=== PATIENT | female | born 1990 | race Caucasian/White ===

== ENCOUNTER 2023-04-12 10:01 | Outpatient (REF) | payer MEDICAID, SELFPAY | END 2023-04-12 10:02 | disposition home or self-care (01) | LOC: NFLDREF 10:01 | PROVIDERS: PCP Family Medicine; Referring Provider Family Medicine; Visit Provider Family Medicine | DX: Z13.220 Encounter for screening for lipoid disorders (principal); Z13.1 Encounter for screening for diabetes mellitus | CPT/HCPCS: 80061; 82947 ==

== ENCOUNTER 2023-04-17 07:58 | Outpatient (CLI) | payer MEDICAID, SELFPAY | END 2023-04-17 07:59 | disposition home or self-care (01) | PROVIDERS: PCP Family Medicine; Visit Provider Family Medicine | DX: N92.6 Irregular menstruation, unspecified (principal); Z13.1 Encounter for screening for diabetes mellitus | CPT/HCPCS: 82947; 84443 ==

== ENCOUNTER 2023-05-17 14:41 | Outpatient (CLI) | payer MEDICAID, SELFPAY ==
--- NOTE | 2023-05-17 15:00 | US_ITS ---
Patient: HONG YAN Facility:?[facility] Patient ID:?[id number] Site Patient ID:?[id number]. Site :?1990 Study:?US-Pelvis TRANSABDOMINAL AND TRANSVAGINAL-05/17/2023 4:45:29 PM Ordering Physician:YANIV RODRIGUEZ Final Report: INDICATION: Irregular menstruation. COMPARISON: None. TECHNIQUE: 2D palomino scale and color Doppler images were acquired of the pelvis using a transabdominal and transvaginal approach. FINDINGS: Sonographic images demonstrate a normal size and smooth outer contour of the uterus. The uterus is anteverted in position. The uterus measures 8.4 cm in length by 3.4 cm in AP diameter by 5.0 cm in transverse dimension. The myometrium has uniform echotexture. The endometrial lining measures 6 mm in composite thickness. The right ovary measures 3.0 x 1.2 x 1.7 cm and the left ovary measures 3.7 x 2.8 x 2.8 cm. The ovaries demonstrate normal arterial and venous blood flow on color Doppler analysis. There is a 2.5 cm dominant follicle in the left ovary. No free fluid in the pelvic cul-de-sac. IMPRESSION: Unremarkable exam. Dictated by Shannon Mart MD @ 05/20/2023 12:16:15 AM Signed by:?Shannon Mart MD @05/20/2023 12:16:15 AM (Electronic Signature)
== END 2023-05-17 14:42 | disposition home or self-care (01) ==
LOC: US 14:41
PROVIDERS: PCP Family Medicine; Visit Provider Family Medicine
DX: N92.6 Irregular menstruation, unspecified (principal); N83.02 Follicular cyst of left ovary
CPT/HCPCS: 76830; 76856; 93976

== ENCOUNTER 2023-05-21 15:46 | Outpatient (CLI) | payer MEDICAID, SELFPAY | END 2023-05-21 15:47 | disposition home or self-care (01) | LOC: NFLDREF 05-22 07:56 | PROVIDERS: PCP Family Medicine; Referring Provider Family Medicine; Visit Provider Obstetrics & Gynecology | DX: R35.0 Frequency of micturition (principal) | CPT/HCPCS: 87086 ==

== ENCOUNTER 2023-05-31 12:58 | Outpatient (CLI) | payer MEDICAID, SELFPAY ==
--- NOTE | 2023-05-31 13:00 | MR_ITS ---
Patient: HONG YAN Facility:?[facility] Patient ID:?[id number] Site Patient ID:?[id number]. Site :?1990 Study:?MRI-Breast W/ and W/O Cont 20 CC DOATERM-05/31/2023 5:13:46 PM Ordering Physician:?JEFERSON GUY Final Report: BILATERAL BREAST MRI WITHOUT AND WITH GADOLINIUM CLINICAL HISTORY: Personal history of BILATERAL mastectomies for prophylaxis with implant reconstruction. Family history BRCA 1 gene. INDICATION FOR BREAST MRI: Screening breast MRI. COMPARISON STUDIES: No comparison studies. There is an ultrasound. CONTRAST: 20 mL Dotarem. TECHNIQUE: The patient was positioned prone using a breast coil. Multiple imaging sequences were obtained using 1-1.5 mm thick slices with no gap. The image sequences include T2-weighted STIR in the axial plane, T1-weighted nonfat-saturated gradient echo in the axial plane, pre- and post-contrast T1-weighted FLASH 3D with fat suppression in the axial plane, and T1-weighted FLASH high resolution 3D with fat suppression in the sagittal plane. Image post-processing was performed on a [employer] workstation. Complex 3D rendering including maximum intensity projections (MIPS) and volumetric renderings were obtained to optimize visualization of the extent of pathology and relationship to the nipple, skin, and chest wall. This aids in determining feasibility of breast conservation surgery. Subtraction, multiplanar reconstruction, mean curve determination, and angiogenesis mapping were also performed. The study was technically adequate. FINDINGS: Changes of BILATERAL nipple sparing mastectomy. BILATERAL silicone implant reconstruction. BILATERAL implants are intact. There is glandular tissue identified in subareolar LEFT breast and BILATERAL fatty tissue surrounding the implants. No suspicious mass or non-mass enhancement. IMPRESSIONS AND RECOMMENDATIONS: Negative for signs of malignancy. Consider follow-up with breast MRI in 1 year for screening. BI-RADS Category 2: Benign Dictated by Lupis Cooper MD @ 06/27/2023 10:14:22 AM jj/Dictated by: Lupis Cooper MD @ 06/27/2023 10:20:00 AM Signed by:?Lupis Cooper MD @06/28/2023 8:18:04 AM (Electronic Signature)
== END 2023-05-31 12:59 | disposition home or self-care (01) ==
LOC: MRI 12:58
PROVIDERS: PCP Family Medicine; Visit Provider Surgery
DX: Z15.01 Genetic susceptibility to malignant neoplasm of breast (principal); Z15.09 Genetic susceptibility to other malignant neoplasm
CPT/HCPCS: 77049; C8908; C8937; A9575

== ENCOUNTER 2023-06-12 09:18 | Outpatient (CLI) | payer MEDICAID, SELFPAY ==
--- NOTE | 2023-06-12 08:45 | US_ITS ---
Patient: HONG YAN Facility:?[facility] Patient ID:?[id number] Site Patient ID:?[id number]. Site :?1990 Study:?US-Extremity Left SOFT TISSUE-06/12/2023 9:46:09 AM Ordering Physician:?JAMEY HOLMAN Final Report: Indication: UNABLE TO FEEL NEXPLANON IN OFFICE FOR REMOVAL Technique: Grayscale sonogram of the left upper arm soft tissues performed. IMPRESSION: NEXPLANON implant is present within the subcutaneous fat, between 3 and 6 millimeters from the skin surface. Dictated by Maury Pathak MD @ 06/12/2023 11:55:38 AM Signed by:?Maury Pathak MD @06/12/2023 11:55:38 AM (Electronic Signature)
== END 2023-06-12 09:19 | disposition home or self-care (01) ==
LOC: US 09:19
PROVIDERS: PCP Family Medicine; Visit Provider Registered Nurse
DX: Z30.46 Encounter for surveillance of implantable subdermal contraceptive (principal)
CPT/HCPCS: 76882

== ENCOUNTER 2023-06-14 09:16 | Outpatient (CLI) | payer MEDICAID, SELFPAY | END 2023-06-14 09:17 | disposition home or self-care (01) | LOC: NFLDREF 06-17 07:58 | PROVIDERS: PCP Family Medicine; Referring Provider Family Medicine; Visit Provider Registered Nurse | DX: Z11.3 Encounter for screening for infections with a predominantly sexual mode of transmission (principal) | CPT/HCPCS: 86592; 86703; 86803; 87340; 87491; 87591 ==

== ENCOUNTER 2023-07-08 06:13 | Day surgery (SDC) | payer MEDICAID, SELFPAY ==
[2023-07-08] VITALS (12 sets, daily range): BP systolic 99–126; BP diastolic 59–95; PULSE 71–89; RESP 14–17; TEMP 36.7; O2SAT 96–99; BMI 26.6
[2023-07-08 07:00] LABS: Ur HCG Qualitative* Negative (Negative)
--- NOTE | 2023-07-08 07:15 | W.PM.H&PU ---
History & Physical Update History & Physical Update H&P Reviewed and patient assessed: No changes noted
--- NOTE | 2023-07-08 07:17 | PM.GSPRC ---
Operative Note Date of procedure: 07/08/23 Pre-op diagnosis: 1. Retained Left upper arm Nexplanon unable to palpate in clinic. Post-op diagnosis: Same Type of Procedure: 1. Removal of left upper arm Nexplanon with fluoroscopic guidance. Indications: 33-year-old female was seen in clinic for Nexplanon removal. This was placed 1 year ago. She was initially seen in OBGYN clinic an attempt at removal was done but was not successful. Patient then had an x-ray of her left upper arm that showed presence of a linear thin foreign body in the left upper arm. On clinical exam in the left upper arm I was not able to palpate her Nexplanon. Given patient's x-ray and her desire to have this Nexplanon removed, excision under fluoroscopy in the operating room was recommended. The procedure was discussed in detail. The risks associated procedure including infection and bleeding were all discussed with the patient, and she agreed to proceed. Procedure Description: After discussing the risks and benefits of the procedure, the patient signed informed consent.? The operative site was marked and the patient was brought to the operating room and placed on the operating table in supine position.? The operative site was then prepped and draped in the usual sterile fashion.? A time-out was then performed. fluoroscopy was brought onto the field and local anesthetic was injected in the left upper arm in the proposed incision site. Skin incision was made with a scalpel. Subcutaneous fat was bluntly divided with mosquito clamps. With frequent palpation of soft tissues and with fluoroscopy were finally able to identify Nexplanon. This was grasped with a mosquito clamp and removed. The Nexplanon was approximately 1 cm deep to the level of the skin And located in subcutaneous fat. Additional local anesthetic was injected at the surgical site. The incision was then closed in layers with interrupted 3-0 Vicryl sutures. The skin was closed with a running 4-0 Monocryl stitch. The length of incision was 2.5 cm. Steri-Strips and sterile pressure dressings were placed over the incision. Sterile dressings were then applied. ? The patient was then woken and transported to the recovery area in stable condition. ? The patient tolerated the procedure well. Findings: Nexplanon was identified and removed. Anesthesia: local Surgeon: Helen Madrid MD Estimated blood loss (mL): 2 Condition: stable Disposition: same day
--- NOTE | 2023-07-08 07:49 | XR_ITS ---
Patient: HONG YAN Facility:?[facility] Patient ID:?[id number] Site Patient ID:?[id number]. Site :?1990 Study:?XRay-Extremity Left HUMERUS-07/08/2023 9:10:15 AM Ordering Physician:ELISE Final Report: INDICATION: REMOVAL OF IMPLANTABLE CONTROL. (Sic) COMPARISON: None available. TECHNIQUE: A single spot image is submitted. FINDINGS: A single spot image labeled left humerus is submitted. Irregular lucency within the peripheral soft tissues is consistent with air status post removal of an implantable control device. No radiopaque soft tissue foreign body is identified in the [id number] of the spot image submitted. There was no real time collaboration between the steam box operator in radiology. Total fluoroscopy time is 70.2 seconds. Dictated by Narinder Garcia MD @ 07/08/2023 3:31:38 PM Signed by:?Narinder Garcia MD @07/08/2023 3:31:38 PM (Electronic Signature)
[2023-07-08] MEDS: BUPIVACAINE 0.25% 30 ML INJECTION (07:55)
--- NOTE | 2023-07-08 08:07 | SUR.OPER ---
Procedure time moved up and radiology staff not available. 5 minute delay
--- NOTE | 2023-07-08 08:25 | SUR.OPER ---
Implant given to patient in a sterile cup
== END 2023-07-08 09:08 | disposition home or self-care (01) ==
PROVIDERS: PCP Family Medicine; Visit Provider Surgery
PROC: (CPT 11982; principal; 2023-07-08 07:30)
DX: T85.698A Other mechanical complication of other specified internal prosthetic devices, implants and grafts, initial encounter (principal)
CPT/HCPCS: 11982; 73060; 81025; J0665

== ENCOUNTER 2023-12-05 12:01 | Outpatient (CLI) | payer MEDICAID, SELFPAY ==
[2023-12-05 12:18] LABS: Clue Cells No Clue Cells Seen (None Seen); Trichomonas No Trichomonas Seen (None Seen); Yeast No Yeast Seen (None Seen)
[2023-12-05 18:26] LABS: Chlamydia DNA Amplified* NOT DETECTED (No Detected); GC DNA Amplified* NOT DETECTED (No Detected)
== END 2023-12-05 12:02 | disposition home or self-care (01) ==
PROVIDERS: PCP Family Medicine; Visit Provider Obstetrics & Gynecology
DX: N89.8 Other specified noninflammatory disorders of vagina (principal); Z11.3 Encounter for screening for infections with a predominantly sexual mode of transmission
CPT/HCPCS: 87210; 87491; 87591

== ENCOUNTER 2023-12-27 10:54 | Outpatient (CLI) | payer MEDICAID, SELFPAY | END 2023-12-27 10:55 | disposition home or self-care (01) | LOC: NFLDREF 10:55 | PROVIDERS: PCP Family Medicine; Visit Provider Family Medicine | DX: N39.0 Urinary tract infection, site not specified (principal) | CPT/HCPCS: 87086; 87186 ==

== ENCOUNTER 2024-06-11 14:42 | Outpatient (CLI) | payer MEDICAID, SELFPAY ==
[2024-06-11 23:27] LABS: Bacterial Vaginosis* Negative (Negative); Candida glab/krus NOT DETECTED (No Detected); Candida species NOT DETECTED (No Detected); Trichomonas vaginalis NOT DETECTED (No Detected)
[2024-06-11 23:59] LABS: Chlamydia DNA Amplified* NOT DETECTED (No Detected); GC DNA Amplified* NOT DETECTED (No Detected)
== END 2024-06-11 14:43 | disposition home or self-care (01) ==
PROVIDERS: PCP Family Medicine; Visit Provider Registered Nurse
DX: Z11.3 Encounter for screening for infections with a predominantly sexual mode of transmission (principal); N89.8 Other specified noninflammatory disorders of vagina
CPT/HCPCS: 81513; 87481; 87491; 87591; 87661